=== PATIENT | male | born 1950 | race Caucasian/White ===

== ENCOUNTER 2021-02-28 08:57 | Day surgery (SDC) | payer MEDICARE ==
[~2021-02-28] VITALS: Ht 177.8 cm; Wt 90.9 kg
[2021-02-28 09:14] VITALS: BP 138/96
[2021-02-28] MEDS ORDERED: fentaNYL/PF 50MCG/1 ML 2ML syringe ONE (09:26)
[2021-02-28] MEDS ORDERED: MIDAZolam 1 MG/ML 5ML VIAL ONE (09:27)
[2021-02-28] MEDS ORDERED: OLME20TA14 PO (10:01)
[2021-02-28] MEDS ORDERED: CHOL200080 PO (10:02)
[2021-02-28] MEDS ORDERED: CYAN1TAB41 PO (10:03)
[2021-02-28 10:10] VITALS: BP 144/83
[2021-02-28 10:20] VITALS: BP 125/73
[2021-02-28 10:30] VITALS: BP 135/84
[2021-02-28 10:40] VITALS: BP 129/73
== END 2021-02-28 10:45 | disposition home or self-care (01) ==
LOC: GI LAB 08:57
PROVIDERS: ATTEND Internal Medicine Gastroenterology
DX: R19.4 Change in bowel habit (principal); K59.00 Constipation, unspecified; K58.9 Irritable bowel syndrome, unspecified; I10 Essential (primary) hypertension; G47.30 Sleep apnea, unspecified; Z79.899 Other long term (current) drug therapy
CPT/HCPCS: 45378; 99153; G0500; J2250; J3010; J7040; Z7512; 99152; A4620